=== PATIENT | male | born 1950 | race Caucasian/White ===

== ENCOUNTER → 2017-02-23 | Outpatient (CLI) | payer OTHER ==
--- NOTE | 2017-02-23 15:52 | REP ---
RIGHT HIP, TWO VIEWS: HISTORY: Pain. There is no acute fracture or dislocation. There is narrowing of the joint space with associated sclerosis. IMPRESSION: Degenerative change as described above. Signed by Jared Ku MD 02/23/2017 04:14 P
== END ==
LOC: M WUC 15:03
PROVIDERS: ATTEND Physician Assistant
DX: M25.551 Pain in right hip (principal); M16.11 Unilateral primary osteoarthritis, right hip